=== PATIENT | female | born 1970 | race Caucasian/White ===

== ENCOUNTER 2018-11-09 12:26 | Emergency (ER) | payer BC ==
[2018-11-09 12:36] VITALS: BP 142/87
[2018-11-09] MEDS ORDERED: DEXAMETHASONE 10 MG/ML VIAL PO STA (13:02)
--- NOTE | 2018-11-09 13:11 | ED Physician Documentation ---
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 She felt that this was likely influenza and she was expecting it to improve and slowly it has worsened she has now developed a lot of pressure in her ears and a persistent cough. Review of Systems Constitutional: reports: Fever, Chills, Myalgias, Fatigue Eyes: denies: Decreased vision Ears: reports: Ear pain Nose: reports: Rhinorrhea / runny nose, Congestion Throat: reports: Sore throat Cardiac: denies: Chest pain / pressure, Palpitations Respiratory: reports: Dyspnea, Cough GI: denies: Vomiting PD PAST MEDICAL HISTORY - Present Medications Home Medications: Ambulatory Orders Medication Instructions Recorded Confirmed Amox/Clav 875/125 [Augmentin] 1 each PO Q12H #20 tablet 11/09/18 - Allergies Allergies/Adverse Reactions: Allergies Allergy/AdvReac Type Severity Reaction Status Date / Time aspirin Allergy Respiratory Verified 11/09/18 12:37 NSAIDS (Non-Steroidal Allergy Respiratory Verified 11/09/18 12:37 Anti-Inflamma PD ED PE NORMAL - Vitals Vital signs reviewed: Yes (hypertensive) - General General: Alert and oriented X 3, No acute distress, Well developed/nourished - HEENT HEENT: Atraumatic, PERRL, EOMI, Pharynx benign, Other (Both TMs are inflamed the right is worse than the left the left is barely starting.) - Neck Neck: Supple, no meningeal sign, No bony TTP - Cardiac Cardiac: RRR, No murmur - Respiratory Respiratory: No respiratory distress, Other (diminished breath sounds. 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 We did not do an influenza swab. She is administered dexamethasone 10 mg orally we will place her on some Augmentin and give her a note for 3 days for work. Departure - Departure Disposition: Home, Self Care Clinical Impression: Otitis media Qualifiers: Otitis media type: suppurative Chronicity: acute Laterality: bilateral Recurrence: not specified as recurrent Spontaneous tympanic membrane rupture: without spontaneous rupture Qualified Code(s): H66.003 - Acute suppurative otitis media without spontaneous rupture of ear drum, bilateral Instructions: ED Otitis Media Acute Adult Follow-Up: Jojo Cruz MD [Provider Admit Priv/Credential] - Prescriptions: Amox/Clav 875/125 [Augmentin] 1 each PO Q12H #20 tablet Forms: Activity restrictions
[2018-11-09] MEDS ORDERED: CHERRY SYRUP 10 ML UDC PO ONE (13:24)
== END 2018-11-09 13:40 | disposition home or self-care (01) ==
LOC: ED 12:26
DX: H66.003 Acute suppurative otitis media without spontaneous rupture of ear drum, bilateral (principal)
CPT/HCPCS: 99283; A9270

== ENCOUNTER 2018-12-23 13:09 | Emergency (ER) | payer BC ==
--- NOTE | 2018-12-23 13:25 | ED Physician Documentation ---
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 She is never had this before but it was reminiscent of shinsplints she had when she was younger. It hurts a lot to walk and had to skip work last night because of it. No fevers.) Review of Systems Constitutional: reports: Reviewed and negative Cardiac: reports: Reviewed and negative Respiratory: reports: Reviewed and negative PD PAST MEDICAL HISTORY - Past Medical History Respiratory: Asthma - Past Surgical History Cardiovascular: CABG - Present Medications Home Medications: Ambulatory Orders Medication Instructions Recorded Confirmed Amox/Clav 875/125 [Augmentin] 1 each PO Q12H #20 tablet 11/09/18 - Allergies Allergies/Adverse Reactions: Allergies Allergy/AdvReac Type Severity Reaction Status Date / Time aspirin Allergy Respiratory Verified 11/09/18 12:37 NSAIDS (Non-Steroidal Allergy Respiratory Verified 11/09/18 12:37 Anti-Inflamma - Social History Does the pt smoke?: No Smoking Status: Never smoker PD ED PE NORMAL - Vitals Vital signs reviewed: Yes - General General: Alert and oriented X 3, No acute distress - Extremities Extremities: Other (She is tender over the anterior right valdez and less so the calf. She has a lot of pain with flexion extension of the ankle and she traces the tinialis anterior When pointing out the pain.) - Neuro Neuro: Alert and oriented X 3, Normal speech Results - Vitals Vitals: Vital Signs - 24 hr 12/23/18 13:11 Temperature 36.6 C Heart Rate 80 Respiratory 16 Rate Blood Pressure 139/80 H O2 Saturation 97 Oxygen O2 Source Room air - Rads (name of study) 2V r TIBFIB Radiology: EMP read contemporaneously (NORMAL) RLE DVT SCAN. Radiology: EMP read contemporaneously (NEG) Departure - Departure Disposition: 01 Home, Self Care Clinical Impression: Tibialis tendinitis of right lower extremity Pain in extremity Qualifiers: Extremity pain location: lower extremity Laterality: right Qualified Code(s): M79.604 - Pain in right leg Condition: Good Instructions: ED Tendinitis Calcific Comments: Follow-up with your primary care physician to discuss physical therapy, return for new or worsening symptoms. Forms: Activity restrictions
--- NOTE | 2018-12-23 14:29 | XRAY Report ---
Reason: RLE pain Procedure Date: 12/23/2018 Accession Number: [id number] / [id number] Procedure: XR - Tib/Fib RT CPT Code: FULL RESULT: EXAM: RIGHT TIBIA/FIBULA RADIOGRAPHY EXAM DATE: 12/23/2018 01:45 PM. CLINICAL HISTORY: Right lower extremity pain COMPARISON: None. TECHNIQUE: 2 views. FINDINGS: Bones: No acute fracture. No bone lesion evident. Joints: The visualized knee and ankle joints are unremarkable. Soft Tissues: No focal soft tissue swelling. IMPRESSION: No acute osseus abnormality. RADIA
[2018-12-23 14:45] VITALS: BP 136/70
--- NOTE | 2018-12-23 14:53 | Ultrasound Report ---
Reason: RLE pain Procedure Date: 12/23/2018 Accession Number: [id number] / [id number] Procedure: US - Duplex Ext Veins Right CPT Code: FULL RESULT: EXAM: RIGHT LOWER EXTREMITY VENOUS ULTRASOUND EXAM DATE: 12/23/2018 02:03 PM. CLINICAL HISTORY: COMPARISON: None. TECHNIQUE: Real-time sonographic vascular imaging was performed by the forex trader through the lower extremity utilizing both color-flow and Doppler spectral analysis. Multiple investment representative static images were saved for review. FINDINGS: Common Femoral Vein (CFV): Normal. CFV-GSV Junction: Normal. Profunda Femoral Vein (PFV): Normal. Femoral Vein (FV) Prox: Normal. Femoral Vein (FV) Mid: Normal. Femoral Vein (FV) Dist: Normal. Popliteal Vein: Normal. Posterior Tibial Veins: Normal. Peroneal Veins: Normal. Contralateral Side CFV: Normal. Other: None. IMPRESSION: No evidence for deep venous thrombosis. RADIA
== END 2018-12-23 15:09 | disposition home or self-care (01) ==
LOC: ED 13:09
DX: M76.9 Unspecified enthesopathy, lower limb, excluding foot (principal)
CPT/HCPCS: 99282; 99283

== ENCOUNTER 2019-07-10 11:51 | Observation (INO) | payer BC ==
--- NOTE | 2019-07-10 12:44 | ED Physician Documentation ---
History of Present Illness - Stated complaint Stated Complaint: CP - Chief complaint Chief Complaint: Cardiac - Additonal information Additional information: This is a very pleasant 48-year-old female with a history of hyperlipidemia, hypertension, hysterectomy, and coronary artery disease status post CABG in 2010, and PCI x1 also in 2010, who presents with now resolved chest pain. Patient woke up this morning around 9 AM and had some pressure-like chest pain in her substernal and left chest region, she took 2 nitroglycerin and the pain resolved, however it recurred around an hour ago and radiated towards her left shoulder. She denies diaphoresis or shortness of breath. It is very typical for her to get chest pains since she is moving to would be in the last year she has not needed to take nitroglycerin at all. She last had a catheterization in December 2017 this was done in [facility] with Dr. Balbuena. At that time she had some mild stenosis up to 30% but nothing requiring intervention. She is currently chest pain free. 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 Cardiovascular: CABG - Present Medications Home Medications: Ambulatory Orders Medication Instructions Recorded Confirmed Atorvastatin Calcium [Lipitor] 80 mg PO DAILY PM 07/10/19 07/10/19 Cetirizine [ZyrTEC] 10 mg PO DAILY 07/10/19 07/10/19 Clopidogrel [Plavix] 75 mg PO DAILY 07/10/19 07/10/19 FLUoxetine [PROzac] 20 mg PO DAILY 07/10/19 07/10/19 Furosemide [Lasix] 20 mg PO DAILY 07/10/19 07/10/19 Gabapentin [Neurontin] 600 mg PO BID 07/10/19 07/10/19 Metoprolol Tartrate [Lopressor] 100 mg PO BID 07/10/19 07/10/19 buPROPion [Wellbutrin Xl] 150 mg PO BID 07/10/19 07/10/19 - Allergies Allergies/Adverse Reactions: Allergies Allergy/AdvReac Type Severity Reaction Status Date / Time aspirin Allergy Respiratory Verified 11/09/18 12:37 NSAIDS (Non-Steroidal Allergy Respiratory Verified 11/09/18 12:37 Anti-Inflamma - Social History Does the pt smoke?: No Smoking Status: Never smoker Does the pt drink ETOH?: Yes Does the pt have substance abuse?: No PD ED PE NORMAL - Vitals Vital signs reviewed: Yes - General General: Alert and oriented X 3 - HEENT HEENT: Atraumatic - Neck Neck: Supple, no meningeal sign - Cardiac Cardiac: RRR, No murmur - Respiratory Respiratory: No respiratory distress, Clear bilaterally - Abdomen Abdomen: Soft, Non distended - Extremities Extremities: No edema - Neuro Neuro: Alert and oriented X 3 Results - Vitals Vitals: Vital Signs - 24 hr 07/10/19 07/10/19 11:58 14:00 Temperature 36.9 C Heart Rate 68 60 Respiratory 18 11 L Rate Blood Pressure 123/78 124/80 O2 Saturation 97 98 Oxygen O2 Source Room air - EKG (time done) 11:59 Other comments: Other comments (Rate 64, rhythm sinus, Normal axis. There is no ST segment elevation. There are T wave inversions in V2 V3 and T wave flattening in V4 V5. There is no past EKG in our system for comparison.) - Labs Labs: Laboratory Tests 07/10/19 07/10/19 07/10/19 13:18 13:18 13:18 WBC 7.1 RBC 4.55 Hgb 14.3 Hct 44.2 MCV 97.1 MCH 31.4 H MCHC 32.4 RDW 12.8 Plt Count 375 MPV 8.8 Neut # (Auto) 4.3 Lymph # (Auto) 1.8 [place] # (Auto) 0.6 Eos # (Auto) 0.4 Baso # (Auto) 0.0 Absolute Nucleated RBC 0.00 Nucleated RBC % 0.0 Sodium 139 Potassium 4.4 Chloride 105 Carbon Dioxide 25 Anion Gap 9.0 BUN 14 Creatinine 0.8 Estimated GFR (MDRD) 77 L Glucose 99 Calcium 9.3 Total Bilirubin 0.5 AST 21 ALT 25 Alkaline Phosphatase 107 Troponin I High Sens < 2.3 L Total Protein 8.2 Albumin 4.7 Globulin 3.5 Albumin/Globulin Ratio 1.3 Lipase 33 - Rads (name of study) CXR Radiology: Other (No acute cardiopulmonary abnormality) PD MEDICAL DECISION MAKING - ED course Complexity details: considered differential (ACS, pneumonia, pneumothorax, pulmonary embolism) ED course: On arrival patient is well-appearing, she did not have chest pain on my exam. Her EKG does show some flipped T waves, no ST segment or depression, we do not have a past EKG for comparison. The character of her pain and the fact that it completely resolved makes pulmonary embolism highly unlikely. Her chest x-ray is unremarkable. Labs including a high-sensitivity troponin are unrevealing. Patient does have an extensive cardiac history, given the characteristic of her pain including the fact that it radiated to her left shoulder, resolved with nitroglycerin, and the fact that her last catheterization was over a year ago, I am concerned for ACS. I discussed with patient my recommendation for further observation For serial troponins and consideration of stress testing or further work-up, I think it be difficult for her to obtain this as an outpatient promptly given that she has not yet established with a payroll and benefits analyst in the region.Patient agrees with this plan, she was admitted to the hospital for further evaluation and treatment. She was not given aspirin because she has an allergy to it.She was given Tylenol for a mild headache she had related to taking the nitroglycerin. Departure - Departure Disposition: ED Place in Observation Clinical Impression: Chest pain Qualifiers: Chest pain type: unspecified Qualified Code(s): R07.9 - Chest pain, unspecified Condition: Good
[2019-07-10 13:25] LABS: BASOPHILS % (AUTO) 0.4 %; EOSINOPHILS # (AUTO) 0.4 10^3/uL (0.0-0.7); EOSINOPHILS % (AUTO) 5.3 %; HGB - HEMOGLOBIN 14.3 g/dL (12.0-16.0); LYMPHOCYTES # (AUTO) 1.8 10^3/uL (1.5-3.5); LYMPHOCYTES % (AUTO) 25.4 %; MEAN CORPUSCULAR HEMOGLOBIN 31.4 pg (27.0-31.0); MEAN CORPUSCULAR HGB CONC 32.4 g/dL (32.0-36.0); MEAN CORPUSCULAR VOLUME 97.1 fL (81.0-99.0); MEAN PLATELET VOLUME 8.8 fL (7.9-10.8); MONOCYTES # (AUTO) 0.6 10^3/uL (0.0-1.0); NEUTROPHILS # (AUTO) 4.3 10^3/uL (1.5-6.6); NEUTROPHILS % (AUTO) 60.6 %; PLT - PLATELET COUNT 375 10^3/uL (130-450); RED BLOOD COUNT 4.55 10^6/uL (4.20-5.40); RED CELL DISTRIBUTION WIDTH 12.8 % (12.0-15.0); WHITE BLOOD COUNT 7.1 x10^3/uL (4.8-10.8)
[2019-07-10 13:40] LABS: ALBUMIN 4.7 g/dL (3.2-5.5); ALBUMIN/GLOBULIN RATIO 1.3 (1.0-2.2); BILIRUBIN,TOTAL 0.5 mg/dL (0.2-1.0); CALCIUM 9.3 mg/dL (8.5-10.3); CREATININE 0.8 mg/dL (0.4-1.0); TOTAL PROTEIN 8.2 g/dL (6.7-8.2)
--- NOTE | 2019-07-10 13:52 | XRAY Report ---
Reason: Chest pain Procedure Date: 07/10/2019 Accession Number: [id number] / [id number] Procedure: XR - Chest 2 View X-Ray CPT Code: 37507 Final Report FULL RESULT: EXAM: CHEST RADIOGRAPHY EXAM DATE: 07/10/2019 01:28 PM. CLINICAL HISTORY: Chest pain. COMPARISON: None. TECHNIQUE: 2 views. FINDINGS: Lungs/Pleura: No focal opacities evident. No pleural effusion. No pneumothorax. Normal volumes. Mediastinum: Heart size is normal. Previous median sternotomy is noted. Trachea is midline. Other: None. IMPRESSION: Negative for an acute cardiopulmonary abnormality. RADIA
[2019-07-10] MEDS ORDERED: ACETAMINOPHEN 325 MG TABLET PO STA (14:25)
[2019-07-10] MEDS ORDERED: SODIUM CHLORIDE FLUSH 0.9% 10 ML SYRINGE IVP PRN (14:27)
[2019-07-10] MEDS ORDERED: NITROGLYCERIN SL 0.4 MG TABLET SL PRN (16:41)
[2019-07-10] MEDS: SODIUM CHLORIDE FLUSH 0.9% 10 ML SYRINGE IVP SCH (17:29)
[2019-07-10] MEDS: ACETAMINOPHEN 325 MG TABLET PO PRN (18:33)
--- NOTE | 2019-07-10 18:41 | HISTORY & PHYSICAL EXAMINATION ---
POOR AUDIO /INCOMPLETE THIS CONTINUATION REVIEWED AND COMBINED WITH ORIG. FIRST PART 07/11/19 thanh CANCELING THIS COPY DATE OF SERVICE: 07/10/2019 Physician: Kelley Lozano MD PHYSICAL EXAMINATION: VITAL SIGNS: Blood pressure 130/80, heart rate 58 and regular, afebrile, room air saturation . HEENT: Reveals hoarseness. NECK: Shows no JVD or carotid bruits. CHEST: Clear lung gan. HEART: Normal heart sounds with no murmurs. ABDOMEN: Mildly obese, normal bowel sounds. No bruit. EXTREMITIES: No clubbing, cyanosis or edema. NEUROLOGIC: Grossly intact. LABORATORY DATA: Normal electrolytes. Normal BUN and creatinine. Normal liver tests. Normal CBC. Troponin not detectable. The second one is pending. Chest x-ray: No active pulmonary disease. EKG: Normal sinus rhythm, symmetrically inverted T-waves in leads I, aVL, V1 through V3. IMPRESSION/DIAGNOSIS:___ 1. Chest pain. 2. Abnormal EKG. 3. History of coronary artery disease with coronary artery bypass grafting and stents. 4. ASPIRIN ALLERGY with polyposis and asthma. 5. Chronic hoarseness, possible gastroesophageal reflux disease as an etiology. 6. Possible sleep apnea. 7. Obesity. PLAN: 1. Place the patient in observation status on telemetry. Use sublingual nitroglycerin if she redevelops any symptoms. 2. Recheck her EKG and obtain recent EKG from the past. 3. Obtain Troponins x3. 4. Obtain a resting echo to evaluate LV wall motion. Depending on results of the followup EKG, followup Troponins and any symptoms. She may need either transfer for repeat angiography versus risk factor assessment with a stress test tomorrow. 5. Continue with her blood pressure and hyperlipidemic meds, Plavix and antianxiety medication. 6. Check her cholesterol in the morning, continue her Lipitor management. 7. Deep venous thrombosis prophylaxis: SCDs. CODE STATUS: FULL CODE. ATTESTATION: The patient is expected to be discharged or transferred to another facility within 96 hours: Yes. TD: 07/10/2019 16:59 MTDD
--- NOTE | 2019-07-10 19:54 | HISTORY & PHYSICAL EXAMINATION ---
DATE OF SERVICE: 07/10/2019 Physician: Kelley Lozano MD HISTORY OF PRESENT ILLNESS: This is a 48-year-old white female with a history of obesity, coronary artery disease with open heart surgery at the age of 40 and stent placement that same year, history of polyposis and ASPIRIN ALLERGY as well as asthma. Patient moved from [place] to [place], [place] approximately 1 year ago. She described more stress in her life over this year since she has had to travel back to [place] 3 times due to her sick mother, and now the mother has moved in with them here in [place]. Patient awoke this morning having chest pain, which was somewhat unlike her prior anginal pain. Eight years ago, the pain started in her mid back and radiating up to her shoulders and was associated with palpitations. Today's episode started in the mid anterior chest with radiation to the left upper chest and to the bilateral shoulders. There were no palpitations today. Patient did take 2 sublingual nitroglycerin and had relief. She also had mild dizziness even before taking the nitroglycerin. Because of new onset of chest pain, she herself presented to the emergency room. PAST MEDICAL HISTORY 1 CAD with CABG and stents in the year 2010. 2. Obesity. 3. ASPIRIN ALLERGY. 4. Sinus polyposis. 5. Possible sleep apnea. 6. Hyperlipidemia. ALLERGIES 1. ASPIRIN. 2. Ashley INHIBITORS. MEDICATIONS 1. Metoprolol tartrate 100 mg p.o. b.i.d. 2. Sublingual nitroglycerin p.r.n. 3. Lipitor 80 mg at bedtime. 4. Plavix 75 mg daily. 5. Amlodipine 10 mg daily. 6. Xanax p.r.n. REVIEW OF SYSTEMS: Patient is being worked up for a gastric sleeve, to deal with obesity, and one of the preoperative evaluations is to check for sleep apnea. Patient describes she had a home sleep apnea test that she "just mailed back" several days ago, the results are not known. A comprehensive review of systems was performed, and the pertinent positives are listed, the rest are negative. FAMILY HISTORY: Strong family history of early coronary disease: her mother had an AK at the age of 43,and her aunt had coronary artery disease at the age of 45. SOCIAL HISTORY: She is a non-smoker, drinks no alcohol, no history of illicit drug use. 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 PHYSICAL EXAMINATION VITAL SIGNS: Blood pressure 130/80, heart rate 58, regular, afebrile, room air saturation normal. HEENT: Reveals hoarseness, otherwise unremarkable. NECK: No JVD or carotid bruits. CHEST: Clear lung gan. HEART: Normal heart sounds with no murmurs. ABDOMEN: Mildly obese, normal bowel sounds. No abdominal bruit. EXTREMITIES: No clubbing, cyanosis, or edema. NEUROLOGIC: Grossly intact. LABORATORY/DATA Normal electrolytes. Normal BUN and creatinine. Normal liver tests. Normal CBC. Troponin not detectable; a second one is pending. Chest x-ray: No active pulmonary disease. EKG: Normal sinus rhythm, symmetrically inverted T-waves in leads I, aVL, and V1 through V3. There is no prior EKG here available for comparison. IMPRESSION/DIAGNOSES 1. Chest pain. 2. Abnormal EKG. 3. History of coronary artery disease with coronary artery bypass grafting and stents. 4. ASPIRIN ALLERGY with polyposis and asthma. 5. Chronic hoarseness, possible gastroesophageal reflux disease as an etiology. 6. Obesity. PLAN 1. Place the patient in Observation status on telemetry. Use sublingual nitroglycerin prn redevelopment of any symptoms. Recheck her EKG tomorrow and obtain EKG from the recent past, for comparing. Cycle troponins x3. Obtain a resting Echo to evaluate LV wall motion, given the abnormal EKG. Depending on results of the followup EKG, followup troponins, and any symptoms overnight, she may need either transfer for repeat angiography versus risk factor assessment and a stress test tomorrow. 2. Continue with her blood pressure and hyperlipidemic meds, Plavix, and antianxiety medication. 3. Check her cholesterol panel in the morning, continue her Lipitor management. Deep venous thrombosis prophylaxis: SCDs. CODE STATUS: FULL CODE. ATTESTATION: The patient is expected to be discharged or transferred to another facility within 96 hours: Yes. cc: Dr. Cruz TD: 07/10/2019 16:56 MTDD
[2019-07-10] MEDS: FAMOTIDINE 20 MG TABLET PO SCH (21:00)
[2019-07-10] MEDS ORDERED: ATORVASTATIN 40 MG TABLET PO SCH (21:00)
[2019-07-10] MEDS: buPROPion XL 150 MG TABLET PO SCH (21:01)
[2019-07-10] MEDS: METOPROLOL SUCCINATE 50 MG TABLET PO SCH (21:01)
[2019-07-10] MEDS: GABAPENTIN 300 MG CAPSULE PO SCH (21:01)
[2019-07-11] MEDS: SODIUM CHLORIDE FLUSH 0.9% 10 ML SYRINGE IVP SCH ×2 (00:43→08:26)
[2019-07-11] MEDS: ACETAMINOPHEN 325 MG TABLET PO PRN (03:23)
[2019-07-11] MEDS: buPROPion XL 150 MG TABLET PO SCH (08:25)
[2019-07-11] MEDS: GABAPENTIN 300 MG CAPSULE PO SCH (08:25)
[2019-07-11] MEDS: METOPROLOL SUCCINATE 50 MG TABLET PO SCH (08:25)
[2019-07-11] MEDS: FAMOTIDINE 20 MG TABLET PO SCH (08:26)
[2019-07-11 08:41] LABS: CHOLESTEROL 152 mg/dL; HDL CHOLESTEROL 38 mg/dL; LDL CHOLESTEROL,CALCULATED 64 mg/dL; LDL/HDL RATIO 1.7 (<4.4); VLDL CHOLESTEROL 50 mg/dL
[2019-07-11] MEDS ORDERED: CETIRIZINE 10 MG TABLET PO SCH (09:00)
[2019-07-11] MEDS ORDERED: CLOPIDOGREL 75 MG TABLET PO SCH (09:00)
[2019-07-11] MEDS ORDERED: FLUoxetine 10 MG CAPSULE PO SCH (09:00)
[2019-07-11] MEDS ORDERED: FUROSEMIDE 20 MG TABLET PO SCH (09:00)
[2019-07-11] MEDS ORDERED: FENOFIBRATE 48 MG TABLET PO SCH (10:00)
[2019-07-11 10:01] LABS: HEMOGLOBIN A1C 0.56 g/dL; HEMOGLOBIN A1C % 5.8 % (4.6-6.2)
--- NOTE | 2019-07-11 11:41 | Discharge Plan ---
Discharge Plan Problem Reviewed?: Yes Disposition: 02 Transfer Acute Care Hosp Condition: Good No Smoking: If you smoke, Please STOP! Call for help. Follow-up with: Jojo Cruz MD [Primary Care Provider] -
--- NOTE | 2019-07-11 11:53 | DISCHARGE SUMMARY ---
Discharge Summary Admit Date: 07/10/19 Discharge Date: 07/11/19 Discharging Provider: Dr Kelley Lozano Primary Care Provider: Dr Jojo Cruz Code Status: Attempt Resuscitation Condition at Discharge: Stable Discharge Disposition: 02 Transfer Acute Care Hosp Discharge Facility Name: [facility] - DIAGNOSES Admission Diagnoses: 1) Chest pain 2) Abnormal EKG 3) Hx of CAD (with prior CABG and stents) 4) Aspirin allergy 5) Chronic hoarseness 6) Obesity Discharge Diagnoses with Status of Each Condition: See below - HPI History of Present Illness: This is a 48 y/o white female, with a Hx of obesity, hyperlipidemia, aspirin allergy with nasal polyps, family history of early heart disease, who herself needed CABG and coronary stenting at the age of 40, done in [place]. She moved here 1 year ago, and has not established with a Ceiling [facility] yet. She developed chest pain recurrence upon awakening, which was relieved with 2 sl NTG and she came to the ER. The EKG showed symmetrically deeply inverted T waves in leads I, AVL, and V1-V3, the first hs-troponin was normal. She was placed in Observation status for evaluating chest pain. - HOSPITAL COURSE Hospital Course: 1) Chest pain Her troponins were WNL, thus she ruled out for an acute OH. She did have another episode of chest pain in the middle of the night, which was relieved with 1 sl NTG. The follow-up EKG and recent last EKG (from 06/26/[address] [facility]), were unchanged, showing abnormal symmetrically inverted T waves mono- laterally. A resting Echo showed borderline LVH, no wall motion abnormalities, LVEF 60% and normal PA pressure. Of note was that the Echo showed a thick atheromatous plaque in the abdominal aorta. All her cardiac meds were continued. The patient was advised a coronary angio due to recurrence of resting chest pain, and she was accepted in transfer by Dr Barnes, of [facility], with whom she will have follow-up at the [facility] clinic here, for her cardiac history. 2) Hypertriglyceridemia The fasting lipid panel showed cholesterol 145, LDL 64, but poor triglycerides of 250. She was started on Tricor 134 mg po daily, and advised a lower starch diet. 3) Hx of CAD (with prior CABG and stents) The history was of palpitations and chest pain 8 years ago. She needed a BASILIO CABG and then a stent to a different coronary vessel, done 1 month later in [place]. We donnot have the angio report. She then had resolution of angina, until these 2 episodes. She had not yet established care with a Ceiling [facility]er since moving to [place] 1 year ago. 4) Aspirin allergy She reports developing respiratory distress and having been diagnosed with sinus polyps that have been removed previously. For this reason, she is on Plavix without aspirin. 5) Chronic hoarseness She has never had an ENT eval of her vocal chords or been treated empirically for nocturnal acid reflux, which could be considered. 6) Obesity She described planning for a gastric sleeve procedure, and is undergoing pre-op testing with the [facility] bariatric center in [place], [place]. - ALLERGIES Allergies/Adverse Reactions: Allergies Allergy/AdvReac Type Severity Reaction Status Date / Time aspirin Allergy Respiratory Verified 11/09/18 12:37 NSAIDS (Non-Steroidal Allergy Respiratory Verified 11/09/18 12:37 Anti-Inflamma - MEDICATIONS Home Medications: Ambulatory Orders Medication Instructions Recorded Confirmed Atorvastatin Calcium [Lipitor] 80 mg PO DAILY PM 07/10/19 07/10/19 Cetirizine [ZyrTEC] 10 mg PO DAILY 07/10/19 07/10/19 Clopidogrel [Plavix] 75 mg PO DAILY 07/10/19 07/10/19 FLUoxetine [PROzac] 20 mg PO DAILY 07/10/19 07/10/19 Furosemide [Lasix] 20 mg PO DAILY 07/10/19 07/10/19 Gabapentin [Neurontin] 600 mg PO BID 07/10/19 07/10/19 Metoprolol Tartrate [Lopressor] 100 mg PO BID 07/10/19 07/10/19 buPROPion [Wellbutrin Xl] 150 mg PO BID 07/10/19 07/10/19 - PHYSICAL EXAM AT DISCHARGE General Appearance: positive: No acute distress, Alert Eyes Bilateral: positive: Normal inspection, PERRL ENT: positive: ENT inspection nml, Other (Hoarseness of voice) Neck: positive: Thyroid nml, No JVD, Other (No carotid bruits) Respiratory: positive: No respiratory distress, Breath sounds nml Cardiovascular: positive: Regular rate & rhythm, No murmur Abdomen: positive: No distention, Other (Obese abdomen, no abdominal bruit) Skin: positive: Color nml Extremities: positive: No pedal edema Neurologic/Psychiatric: positive: Oriented x3, Other (Non-focal exam) - LABS Result Diagrams: 07/10/19 13:18 07/10/19 13:18 - DIAGNOSTIC IMAGING Diagnostic Imaging Results: Final report reviewed - FOLLOW UP Follow Up: This will be determined after her hospitalization at [facility]
[2019-07-11 13:14] VITALS: BP 120/72
== END 2019-07-11 14:22 | disposition short-term general hospital (02) ==
LOC: ED 11:51 → MS2 14:27
PROVIDERS: ADMIT Internal Medicine; ATTEND Internal Medicine
DX: I25.110 Atherosclerotic heart disease of native coronary artery with unstable angina pectoris (principal); I70.0 Atherosclerosis of aorta; G44.40 Drug-induced headache, not elsewhere classified, not intractable; T46.3X5A Adverse effect of coronary vasodilators, initial encounter; E78.1 Pure hyperglyceridemia; I11.9 Hypertensive heart disease without heart failure; E66.9 Obesity, unspecified; R49.0 Dysphonia; F41.9 Anxiety disorder, unspecified; Z95.1 Presence of aortocoronary bypass graft; Z95.5 Presence of coronary angioplasty implant and graft; Z90.710 Acquired absence of both cervix and uterus; Z79.899 Other long term (current) drug therapy; Z79.02 Long term (current) use of antithrombotics/antiplatelets; Z88.8 Allergy status to other drugs, medicaments and biological substances; Z68.42 Body mass index [BMI] 45.0-49.9, adult; Z82.49 Family history of ischemic heart disease and other diseases of the circulatory system; Z63.6 Dependent relative needing care at home; Z87.09 Personal history of other diseases of the respiratory system
CPT/HCPCS: 36415; 71046; 80053; 80061; 82465; 83036; 83690; 84484; 85025; 93005; 93306; 99284; 99285; A9270; G0378; 83721

== ENCOUNTER 2019-11-19 14:51 | Outpatient (CLI) | payer BC | END 2019-11-19 14:52 | disposition home or self-care (01) | LOC: COV 14:51 | PROVIDERS: ATTEND Family Medicine | DX: R50.9 Fever, unspecified (principal) | CPT/HCPCS: 81599 ==

== ENCOUNTER 2019-12-20 18:22 | Outpatient (CLI) | payer BC | END 2019-12-20 18:23 | disposition home or self-care (01) | LOC: COV 18:22 | PROVIDERS: ATTEND Family Medicine | DX: R50.9 Fever, unspecified (principal); R53.83 Other fatigue | CPT/HCPCS: 81599 ==

== ENCOUNTER 2020-05-06 08:17 | Outpatient (CLI) | payer BC ==
[2020-05-06 08:36] LABS: HGB - HEMOGLOBIN 13.6 g/dL (12.0-16.0); MEAN CORPUSCULAR HEMOGLOBIN 31.8 pg (27.0-31.0); MEAN CORPUSCULAR HGB CONC 33.1 g/dL (32.0-36.0); RED BLOOD COUNT 4.28 10^6/uL (4.20-5.40); RED CELL DISTRIBUTION WIDTH 12.4 % (12.0-15.0); WHITE BLOOD COUNT 8.3 x10^3/uL (4.8-10.8)
[2020-05-06 08:52] LABS: % IRON SATURATION 19 % (20-50); ALBUMIN 4.2 g/dL (3.2-5.5); ALBUMIN/GLOBULIN RATIO 1.2 (1.0-2.2); ALKALINE PHOSPHATASE 113 IU/L (42-121); ALT ALANINE AMINOTRANSFERASE 20 IU/L (10-60); AST ASPARTATE AMINOTRANSFERASE 16 IU/L (10-42); BILIRUBIN,TOTAL 0.5 mg/dL (0.2-1.0); BUN - BLOOD UREA NITROGEN 15 mg/dL (6-20); CALCIUM 9.5 mg/dL (8.5-10.3); CARBON DIOXIDE - CO2 25 mmol/L (21-32); CHLORIDE 101 mmol/L (101-111); CHOL/HDL RATIO 3.2 (<4.4); CHOLESTEROL 138 mg/dL; CREATININE 0.9 mg/dL (0.4-1.0); GLUCOSE 120 mg/dL (70-100); HDL CHOLESTEROL 43 mg/dL; IRON 75 ug/dL (28-170); LDL CHOLESTEROL,CALCULATED 56 mg/dL; LDL/HDL RATIO 1.3 (<4.4); SODIUM 136 mmol/L (135-145); TOTAL IRON BINDING CAPACITY 386 ug/dL (250-450); TOTAL PROTEIN 7.7 g/dL (6.7-8.2); TRANSFERRIN 276 mg/dL (192-382); VLDL CHOLESTEROL 39 mg/dL
[2020-05-06 09:02] LABS: THYROID STIMULATING HORMONE 1.04 uIU/mL (0.34-5.60)
[2020-05-06 09:09] LABS: FERRITIN 41.6 ng/mL (11.0-306.8)
[2020-05-06 09:13] LABS: FOLATE 8.03 ng/mL (5.90 - >24.8)
[2020-05-06 10:26] LABS: HEMOGLOBIN A1c% 5.9 % (4.27-6.07)
== END 2020-05-06 08:18 | disposition home or self-care (01) ==
LOC: LAB 08:17
PROVIDERS: ATTEND Surgery
DX: Z71.3 Dietary counseling and surveillance (principal)
CPT/HCPCS: 36415; 80053; 80061; 82306; 82607; 82728; 82746; 83036; 83540; 83721; 84425; 84443; 84466; 84590; 84630; 85027

== ENCOUNTER 2020-05-27 17:38 | Outpatient (CLI) | payer BC | END 2020-05-27 17:39 | disposition home or self-care (01) | LOC: COV 17:38 | PROVIDERS: ATTEND Surgery | DX: Z01.818 Encounter for other preprocedural examination (principal); Z20.828 Contact with and (suspected) exposure to other viral communicable diseases ==

== ENCOUNTER 2020-07-16 15:14 | Outpatient (CLI) | payer BC | END 2020-07-16 15:15 | disposition home or self-care (01) | LOC: LAB 15:14 | PROVIDERS: ATTEND Surgery | DX: Z01.818 Encounter for other preprocedural examination (principal); Z20.828 Contact with and (suspected) exposure to other viral communicable diseases ==

== ENCOUNTER 2021-05-05 17:07 | Outpatient (CLI) | payer BC | END 2021-05-05 17:08 | disposition home or self-care (01) | LOC: LAB 17:07 | PROVIDERS: ATTEND Ophthalmology | DX: Z01.812 Encounter for preprocedural laboratory examination (principal); Z20.822 Contact with and (suspected) exposure to COVID-19 ==

== ENCOUNTER 2021-06-05 10:11 | Outpatient (CLI) | payer BC ==
[2021-06-05 10:25] LABS: BASOPHILS % (AUTO) 0.3 %; EOSINOPHILS # (AUTO) 0.1 10^3/uL (0.0-0.7); EOSINOPHILS % (AUTO) 2.1 %; HCT - HEMATOCRIT 41.3 % (37.0-47.0); HGB - HEMOGLOBIN 13.8 g/dL (12.0-16.0); LYMPHOCYTES # (AUTO) 1.6 10^3/uL (1.5-3.5); LYMPHOCYTES % (AUTO) 26.6 %; MEAN CORPUSCULAR HEMOGLOBIN 31.4 pg (27.0-31.0); MEAN CORPUSCULAR HGB CONC 33.4 g/dL (32.0-36.0); MEAN CORPUSCULAR VOLUME 94.1 fL (81.0-99.0); MEAN PLATELET VOLUME 9.2 fL (7.9-10.8); MONOCYTES # (AUTO) 0.5 10^3/uL (0.0-1.0); MONOCYTES % (AUTO) 8.3 %; NEUTROPHILS # (AUTO) 3.8 10^3/uL (1.5-6.6); NEUTROPHILS % (AUTO) 62.5 %; PLT - PLATELET COUNT 340 10^3/uL (130-450); RED BLOOD COUNT 4.39 10^6/uL (4.20-5.40); RED CELL DISTRIBUTION WIDTH 12.2 % (12.0-15.0); WHITE BLOOD COUNT 6.1 x10^3/uL (4.8-10.8)
[2021-06-05 10:53] LABS: ALBUMIN 4.3 g/dL (3.2-5.5); ALBUMIN/GLOBULIN RATIO 1.3 (1.0-2.2); ALKALINE PHOSPHATASE 98 IU/L (42-121); ALT ALANINE AMINOTRANSFERASE 21 IU/L (10-60); AST ASPARTATE AMINOTRANSFERASE 18 IU/L (10-42); BILIRUBIN,TOTAL 0.7 mg/dL (0.2-1.0); BUN - BLOOD UREA NITROGEN 14 mg/dL (6-20); CALCIUM 9.5 mg/dL (8.5-10.3); CARBON DIOXIDE - CO2 26 mmol/L (21-32); CHLORIDE 102 mmol/L (101-111); CHOLESTEROL 235 mg/dL; CREATININE 0.8 mg/dL (0.4-1.0); GFR - MDRD 76 (>89); GLUCOSE 122 mg/dL (70-100); HDL CHOLESTEROL 47 mg/dL; LDL CHOLESTEROL,CALCULATED 140 mg/dL; POTASSIUM 4.1 mmol/L (3.5-5.0); SODIUM 139 mmol/L (135-145); TOTAL PROTEIN 7.7 g/dL (6.7-8.2); TRIGLYCERIDES 238 mg/dL; VLDL CHOLESTEROL 48 mg/dL
[2021-06-05 11:06] LABS: THYROID STIMULATING HORMONE 0.93 uIU/mL (0.34-5.60)
== END 2021-06-05 10:12 | disposition home or self-care (01) ==
LOC: LAB 10:11
PROVIDERS: ATTEND Internal Medicine
DX: I25.10 Atherosclerotic heart disease of native coronary artery without angina pectoris (principal); Z79.899 Other long term (current) drug therapy; E78.5 Hyperlipidemia, unspecified; R03.0 Elevated blood-pressure reading, without diagnosis of hypertension; K91.2 Postsurgical malabsorption, not elsewhere classified
CPT/HCPCS: 36415; 80053; 80061; 82607; 83721; 84443; 85025

== ENCOUNTER 2021-06-21 14:29 | Outpatient (CLI) | payer BC ==
--- NOTE | 2021-07-01 08:45 | Mammography Report ---
BILATERAL DIGITAL SCREENING MAMMOGRAM 3D/2D: 06/21/2021 CLINICAL: Family history of breast cancer. No prior exams were available for comparison. There are scattered fibroglandular elements in both br easts. There is an oval equal density focal asymmetry with a spiculated and indistinct margin in the right b reast at 12 o'clock middle depth. No other significant masses, calcifications, or other findings are seen in either breast. IMPRESSION: INCOMPLETE: NEEDS ADDITIONAL IMAGING EVALUATION The oval equal density focal asymmetry in the right breast is indeterminate. Mediolateral and spot c ompression views as well as additional views with possible ultrasound are recommended. This exam was interpreted at Station ID: [id number]. NOTE: For mammograms, a report in lay terms will be sent to the patient. Approximately 15% of breast malignancies will not be visualized mammographically. In the management of a palpable breast mass, a negative mammogram must not discourage biopsy of a clinically suspicious lesion. Electronically Signed By: Sanjeev Daniels M.D. ddp/penrad:06/30/2021 08:19:00 ACR BI-RADS Category 0: Incomplete 3340F PARENCHYMAL PATTERN: (A) - The breast(s) demonstrate(s) scattered fibroglandular densities. BI-RADS CATEGORY: (0) - 0 Mammo and [place] [id number] Immediate follow-up LATERALITY: (B)
== END 2021-06-21 14:30 | disposition home or self-care (01) ==
LOC: DI.S 14:29
PROVIDERS: ATTEND Internal Medicine
DX: Z12.31 Encounter for screening mammogram for malignant neoplasm of breast (principal); R92.8 Other abnormal and inconclusive findings on diagnostic imaging of breast; Z80.3 Family history of malignant neoplasm of breast

== ENCOUNTER 2021-07-06 09:48 | Outpatient (CLI) | payer BC ==
--- NOTE | 2021-07-07 08:20 | Ultrasound Report ---
LIMITED ULTRASOUND OF RIGHT BREAST: 07/06/2021 CLINICAL: Patient returns today to evaluate a focal asymmetry in the right breast. Comparison is made to exams dated: 07/06/2021 mammogram and 06/21/2021 mammogram - [facility]. Color flow ultrasound of the right breast 9-12 o'clock region was performed. Hobson scale images of th e real-time examination were reviewed. No ultrasound abnormality was identified. Ultrasound was performed of the entire right upper outer qu adrant. IMPRESSION: PROBABLY BENIGN No abnormality on ultrasound is identified. The mammographic findings demonstrate a well-circumscribe d focal asymmetry, probably a small cyst or lymph node. However since this is a baseline mammogram an d no priors are available for comparison, a repeat mammogram will be performed in 6 months to ensure stability and repeat ultrasound if necessary can also be performed at that time. This exam was interpreted at Station ID: [id number]. Electronically Signed By: Michele Cisneros acr/:07/06/2021 12:10:19 Ultrasound BI-RADS: 3 Probably benign BI-RADS CATEGORY: (3) - 3 Mammo and US [id number] 6 month follow-up LATERALITY: (R)
--- NOTE | 2021-07-07 08:20 | Mammography Report ---
UNILATERAL RIGHT DIGITAL DIAGNOSTIC MAMMOGRAM 3D/2D: 07/06/2021 CLINICAL: Patient returns today to evaluate a focal asymmetry in the right breast. Comparison is made to exam dated: 06/21/2021 mammogram - [facility]. There are sc attered fibroglandular elements in right breast. The focal asymmetry in the right breast on additional imaging is well-circumscribed, possibly a lymph node and has no spiculations. It measures approximately 5 x 3 mm and is 7 cm from the nipple. No oth er significant masses or calcifications are seen in the breast. IMPRESSION: INCOMPLETE: NEEDS ADDITIONAL IMAGING EVALUATION The oval equal density focal asymmetry in the right breast is indeterminate. On additional views the asymmetry is well-circumscribed, possibly a cyst or lymph node, however since this is a baseline mamm ogram, recommend ultrasound for further evaluation. Ultrasound will be performed immediately followin g this exam and dictated separately. This exam was interpreted at Station ID: [id number]. NOTE: For mammograms, a report in lay terms will be sent to the patient. Approximately 15% of breast malignancies will not be visualized mammographically. In the management of a palpable breast mass, a negative mammogram must not discourage biopsy of a clinically suspicious lesion. Electronically Signed By: Michele Cisneros acr/:07/06/2021 12:01:44 ACR BI-RADS Category 0: Incomplete 3340F PARENCHYMAL PATTERN: (A) - The breast(s) demonstrate(s) scattered fibroglandular densities. BI-RADS CATEGORY: (0) - 0 Ultrasound [id number] Immediate follow-up LATERALITY: (R)
== END 2021-07-06 09:49 | disposition home or self-care (01) ==
LOC: DI 09:48
PROVIDERS: ATTEND Internal Medicine
DX: R92.8 Other abnormal and inconclusive findings on diagnostic imaging of breast (principal)